=== PATIENT | female | born 2000 | race African-American/Black ===

== ENCOUNTER 2023-01-09 07:05 | Emergency (ER) | payer OTHER ==
[~2023-01-09] VITALS: Ht 162.6 cm; Wt 72.0 kg
[2023-01-09 08:46] VITALS: BP 116/69; TEMP 98.5; O2SAT 99
== END 2023-01-09 08:47 | disposition home or self-care (01) ==
LOC: M ED 07:05
DX: S69.91XA Unspecified injury of right wrist, hand and finger(s), initial encounter (principal); W01.0XXA Fall on same level from slipping, tripping and stumbling without subsequent striking against object, initial encounter; Y99.1 Military activity

== ENCOUNTER 2023-08-17 08:49 | Emergency (ER) | payer OTHER ==
[~2023-08-17] VITALS: Ht 162.6 cm; Wt 75.6 kg
[2023-08-17 10:02] LABS: HEMATOCRIT 40.1 % (36.0-47.0); HEMOGLOBIN 13.3 g/dl (12.0-15.5); MEAN CORPUSCULAR HEMOGLOBIN 29.7 pg (27.0-33.0); MEAN CORPUSCULAR HGB CONC 33.2 g/dl (32.0-36.5); MEAN CORPUSCULAR VOLUME 89.5 fl (80.0-96.0); PLATELET COUNT, AUTOMATED 185 10^3/uL (150-450); RED BLOOD COUNT 4.48 10^6/uL (4.00-5.40); WHITE BLOOD COUNT 5.9 10^3/uL (4.0-10.0)
[2023-08-17 10:07] LABS: INR 0.99; PROTHROMBIN TIME 12.8 SECONDS (12.5-14.5)
[2023-08-17 10:20] LABS: LIPASE 32 U/L (12-53)
[2023-08-17 10:22] LABS: ALBUMIN 3.6 G/DL (3.2-5.2); ALKALINE PHOSPHATASE 60 U/L (46-116); ALT/SGPT 16 U/L (7.0-40); AST/SGOT 15 U/L (<34); BILIRUBIN,DIRECT 0.1 MG/DL (<0.4); BILIRUBIN,TOTAL 0.4 MG/DL (0.3-1.2); BLOOD UREA NITROGEN 12 MG/DL (9-23); CALCIUM LEVEL 8.6 MG/DL (8.5-10.1); CARBON DIOXIDE LEVEL 29 MMOL/L (20-31); CHLORIDE LEVEL 103 MMOL/L (98-107); CREATININE FOR GFR 0.81 MG/DL (0.55-1.30); GLOMERULAR FILTRATION RATE > 60.0 (>60); GLUCOSE, FASTING 76 MG/DL (60-100); POTASSIUM SERUM 4.4 MMOL/L (3.5-5.1); SODIUM LEVEL 137 MMOL/L (136-145); TOTAL PROTEIN 6.9 G/DL (5.7-8.2)
[2023-08-17 10:28] LABS: HCG, SERUM QUALITATIVE NEGATIVE (NEGATIVE)
[2023-08-17 10:32] LABS: ATYPICAL LYMPH 8 % (0-5); BASOPHILS 1 % (0-1); EOSINOPHILS 2 % (0-3); LYMPHOCYTES 17 % (16-44); MONOCYTES 10 % (0-5); NEUTROPHILS 59 % (28-66)
[2023-08-17 10:34] LABS: PLATELET ESTIMATE NORMAL (NORMAL)
[2023-08-17] MEDS ORDERED: MIRA3350 PO (11:40)
[2023-08-17 12:31] VITALS: BP 111/57; TEMP 98.3; O2SAT 100
== END 2023-08-17 12:43 | disposition home or self-care (01) ==
LOC: M ED 08:49
DX: K62.5 Hemorrhage of anus and rectum (principal); K59.00 Constipation, unspecified; F10.10 Alcohol abuse, uncomplicated; Z79.1 Long term (current) use of non-steroidal anti-inflammatories (NSAID)

== ENCOUNTER 2023-11-05 13:58 | Emergency (ER) | payer OTHER ==
[~2023-11-05] VITALS: Ht 162.6 cm; Wt 74.0 kg
[~2023-11-05 13:58] MED LIST: MIRA3350 PO
[2023-11-05 19:39] LABS: BASO % 0.4 % (0.0-1.0); EOS # 1.2 10^3/uL (0.0-0.5); HEMATOCRIT 33.5 % (36.0-47.0); HEMOGLOBIN 10.9 g/dl (12.0-15.5); LYMPH # 2.2 10^3/uL (1.5-5.0); LYMPH % 24.3 % (24.0-44.0); MEAN CORPUSCULAR HEMOGLOBIN 28.2 pg (27.0-33.0); MEAN CORPUSCULAR HGB CONC 32.5 g/dl (32.0-36.5); MEAN CORPUSCULAR VOLUME 86.6 fl (80.0-96.0); MONO # 0.8 10^3/uL (0.0-0.8); MONO % 9.4 % (2.0-8.0); NEUTROPHILS # 4.7 10^3/uL (1.5-8.5); NEUTROPHILS % 52.5 % (36.0-66.0); PLATELET COUNT, AUTOMATED 344 10^3/uL (150-450); RED BLOOD COUNT 3.87 10^6/uL (4.00-5.40); WHITE BLOOD COUNT 8.9 10^3/uL (4.0-10.0)
[2023-11-05 19:40] LABS: INR 1.07; PROTHROMBIN TIME 13.6 SECONDS (12.5-14.5)
[2023-11-05 19:42] LABS: LIPASE 30 U/L (12-53)
[2023-11-05 19:44] LABS: ALBUMIN 3.2 G/DL (3.2-5.2); ALKALINE PHOSPHATASE 62 U/L (46-116); ALT/SGPT 12 U/L (7.0-40); AST/SGOT 11 U/L (<34); BILIRUBIN,DIRECT < 0.1 MG/DL (<0.4); BILIRUBIN,TOTAL 0.2 MG/DL (0.3-1.2); BLOOD UREA NITROGEN 8 MG/DL (9-23); CALCIUM LEVEL 9.4 MG/DL (8.5-10.1); CARBON DIOXIDE LEVEL 28 MMOL/L (20-31); CHLORIDE LEVEL 105 MMOL/L (98-107); CREATININE FOR GFR 0.89 MG/DL (0.55-1.30); GLOMERULAR FILTRATION RATE > 60.0 (>60); GLUCOSE, FASTING 88 MG/DL (60-100); SODIUM LEVEL 138 MMOL/L (136-145); TOTAL PROTEIN 6.4 G/DL (5.7-8.2)
[2023-11-05] MEDS ORDERED: PRED20TA PO (20:25)
[2023-11-05 20:30] VITALS: O2SAT 99
[2023-11-05 20:53] VITALS: BP 120/76; TEMP 98.8
== END 2023-11-05 20:55 | disposition home or self-care (01) ==
LOC: M ED 13:58
DX: K51.911 Ulcerative colitis, unspecified with rectal bleeding (principal); F10.10 Alcohol abuse, uncomplicated; Z79.899 Other long term (current) drug therapy; Z79.52 Long term (current) use of systemic steroids

== ENCOUNTER 2024-02-14 10:51 | Outpatient (CLI) | payer OTHER ==
[~2024-02-14] VITALS: Ht 162.6 cm; Wt 60.0 kg
[~2024-02-14 10:51] MED LIST changes: +ALBUTEROL SULFATE 2.5MG/0.5ML INH NEB SOLN INH PRN; +EPINEPHrine INJ 1 MG/ML 1ML AMP IM PRN; +NS 1,000 ML IV SCH; +PRED20TA PO; +diphenhydrAMINE 50MG/ML VIAL IV PRN; +methylPREDNISolone 125MG 2ML VIAL IV PRN
[2024-02-14 11:00] VITALS: BP 111/59; O2SAT 100
[2024-02-14 11:04] VITALS: BP 111/59; O2SAT 100
[2024-02-14] MEDS: VEDOLIZUMAB 300 MG in NS 250 ML IV ONE (11:48)
[2024-02-14 12:30] VITALS: BP 119/65; O2SAT 100
== END 2024-02-14 13:00 ==
LOC: M INFU 10:51
PROVIDERS: ATTEND Internal Medicine Gastroenterology
DX: K51.90 Ulcerative colitis, unspecified, without complications (principal)
CPT/HCPCS: 96365; J3380

== ENCOUNTER 2024-02-28 11:00 | Outpatient (CLI) | payer OTHER ==
[~2024-02-28] VITALS: Ht 162.6 cm; Wt 61.4 kg
[2024-02-28 11:12] VITALS: BP 109/75; TEMP 98.4; O2SAT 100
[2024-02-28] MEDS: VEDOLIZUMAB 300 MG in NS 250 ML IV ONE (11:37)
[2024-02-28 12:20] VITALS: BP 117/69; O2SAT 97
== END 2024-02-28 12:20 ==
LOC: M INFU 11:00
PROVIDERS: ATTEND Internal Medicine Gastroenterology
DX: K51.90 Ulcerative colitis, unspecified, without complications (principal)
CPT/HCPCS: 96365; J3380

== ENCOUNTER 2024-03-27 10:44 | Outpatient (CLI) | payer OTHER ==
[~2024-03-27] VITALS: Ht 162.6 cm; Wt 63.6 kg
[2024-03-27 10:45] VITALS: BP 110/63; O2SAT 99
[2024-03-27] MEDS: VEDOLIZUMAB 300 MG in NS 250 ML IV ONE (12:15)
[2024-03-27 12:49] VITALS: BP 123/62; O2SAT 100
== END 2024-03-27 12:50 ==
LOC: M INFU 10:44
PROVIDERS: ATTEND Internal Medicine Gastroenterology
DX: K51.90 Ulcerative colitis, unspecified, without complications (principal)
CPT/HCPCS: 96365; J3380

== ENCOUNTER → 2024-05-08 | Outpatient (CLI) | payer OTHER ==
[~2024-05-08] VITALS: Ht 162.6 cm; Wt 63.6 kg
[~2024-05-08] MED LIST changes: -NS 1,000 ML IV SCH
[2024-05-08 14:55] VITALS: BP 127/61; O2SAT 97
[2024-05-08] MEDS: IRON SUCROSE 300 MG in NS 250 ML IV ONE (16:00)
[2024-05-08 17:23] VITALS: BP 114/70; O2SAT 98
== END ==
LOC: M INFU 14:46
PROVIDERS: ATTEND Internal Medicine Hematology
DX: D50.9 Iron deficiency anemia, unspecified (principal)
CPT/HCPCS: 96365; 96366; J1756

== ENCOUNTER 2024-05-15 14:45 | Outpatient (CLI) | payer OTHER ==
[2024-05-15 14:45] VITALS: BP 125/62; O2SAT 98
[2024-05-15] MEDS: IRON SUCROSE 300 MG in NS 250 ML OVER 90 MIN. IV ONE (15:02)
[2024-05-15 16:38] VITALS: BP 118/69; O2SAT 99
== END 2024-05-15 16:45 ==
LOC: M INFU 14:45
PROVIDERS: ATTEND Internal Medicine Hematology
DX: D50.9 Iron deficiency anemia, unspecified (principal)
CPT/HCPCS: 96365; 96366; J1756

== ENCOUNTER 2024-05-22 10:56 | Outpatient (CLI) | payer OTHER ==
[2024-05-22 10:00] VITALS: BP 118/68; O2SAT 98
[~2024-05-22 10:56] MED LIST changes: +NS (Normal Saline) 0.9% 1,000 ML IV SCH
[2024-05-22] MEDS: VEDOLIZUMAB 300 MG in NS 250 ML IV ONE (11:34)
[2024-05-22 12:15] VITALS: BP 113/63; O2SAT 97
== END 2024-05-22 12:15 ==
LOC: M INFU 10:56
PROVIDERS: ATTEND Internal Medicine Gastroenterology
DX: K51.90 Ulcerative colitis, unspecified, without complications (principal)
CPT/HCPCS: 96365; J3380

== ENCOUNTER 2024-05-23 13:55 | Outpatient (CLI) | payer OTHER ==
[~2024-05-23] VITALS: Ht 162.6 cm; Wt 63.6 kg
[~2024-05-23 13:55] MED LIST changes: -NS (Normal Saline) 0.9% 1,000 ML IV SCH
[2024-05-23 14:00] VITALS: BP 106/57; O2SAT 98
[2024-05-23] MEDS: IRON SUCROSE 300 MG in NS 250 ML IV ONE (14:11)
[2024-05-23 15:47] VITALS: BP 96/55; O2SAT 100
== END 2024-05-23 15:50 ==
LOC: M INFU 13:55
PROVIDERS: ATTEND Internal Medicine Hematology
DX: D50.9 Iron deficiency anemia, unspecified (principal)
CPT/HCPCS: 96365; 96366; J1756

== ENCOUNTER → 2024-06-12 | Outpatient (CLI) | payer OTHER ==
[~2024-06-12] MED LIST changes: -ALBUTEROL SULFATE 2.5MG/0.5ML INH NEB SOLN INH PRN; -EPINEPHrine INJ 1 MG/ML 1ML AMP IM PRN; -diphenhydrAMINE 50MG/ML VIAL IV PRN; -methylPREDNISolone 125MG 2ML VIAL IV PRN
[2024-06-12 11:52] LABS: C REACTIVE PROTEIN QUANTITATIV < 0.50 MG/DL (<1.0)
[2024-06-12 11:53] LABS: ALBUMIN 3.7 G/DL (3.2-5.2); ALKALINE PHOSPHATASE 55 U/L (35-104); ALT/SGPT 11 U/L (7.0-40); AST/SGOT 11 U/L (<34); BILIRUBIN,TOTAL 0.5 MG/DL (0.3-1.2); BLOOD UREA NITROGEN 13 MG/DL (9-23); CALCIUM LEVEL 9.2 MG/DL (8.5-10.1); CARBON DIOXIDE LEVEL 28 MMOL/L (20-31); CHLORIDE LEVEL 105 MMOL/L (98-107); CHOLESTEROL LEVEL 176 MG/DL (<200); CREATININE FOR GFR 0.74 MG/DL (0.55-1.30); GLOMERULAR FILTRATION RATE > 60.0 (>60); GLUCOSE, FASTING 80 MG/DL (60-100); HDL CHOLESTEROL 73.2 MG/DL (>40); LDL CHOLESTEROL 86.8 MG/DL (<100); MAGNESIUM LEVEL 1.8 MG/DL (1.8-2.4); NON-HDL-C 102.8 MG/DL; POTASSIUM SERUM 4.4 MMOL/L (3.5-5.1); SODIUM LEVEL 141 MMOL/L (136-145); TOTAL PROTEIN 7.1 G/DL (5.7-8.2); TRIGLYCERIDES LEVEL 80 MG/DL (<150)
[2024-06-12 11:58] LABS: BASO % 0.3 % (0.0-1.0); EOS # 0.1 10^3/uL (0.0-0.5); EOS % 2.2 % (0.0-3.0); HEMATOCRIT 38.3 % (36.0-47.0); HEMOGLOBIN 12.5 g/dl (12.0-15.5); LYMPH # 1.7 10^3/uL (1.5-5.0); LYMPH % 27.3 % (24.0-44.0); MEAN CORPUSCULAR HEMOGLOBIN 26.4 pg (27.0-33.0); MEAN CORPUSCULAR HGB CONC 32.6 g/dl (32.0-36.5); MEAN CORPUSCULAR VOLUME 80.8 fl (80.0-96.0); MONO # 0.3 10^3/uL (0.0-0.8); MONO % 4.8 % (2.0-8.0); NEUTROPHILS # 4.1 10^3/uL (1.5-8.5); NEUTROPHILS % 65.2 % (36.0-66.0); PLATELET COUNT, AUTOMATED 182 10^3/uL (150-450); RED BLOOD COUNT 4.74 10^6/uL (4.00-5.40); WHITE BLOOD COUNT 6.3 10^3/uL (4.0-10.0)
[2024-06-12 12:02] LABS: ERYTHROCYTE SEDIMENTATION RATE 4 mm/hr (0-20)
[2024-06-13 14:37] LABS: NT PRO BNP SO 48 pg/mL (<125)
== END ==
LOC: M LAB 10:18
PROVIDERS: ATTEND Internal Medicine Cardiovascular Disease
DX: R06.09 Other forms of dyspnea (principal)

== ENCOUNTER 2024-07-17 11:25 | Outpatient (CLI) | payer OTHER ==
[~2024-07-17] VITALS: Ht 162.6 cm; Wt 63.6 kg
[~2024-07-17 11:25] MED LIST changes: +ALBUTEROL SULFATE 2.5MG/0.5ML INH NEB SOLN INH PRN; +EPINEPHrine INJ 1 MG/ML 1ML AMP IM PRN; +diphenhydrAMINE 50MG/ML VIAL IV PRN; +methylPREDNISolone 125MG 2ML VIAL IV PRN
[2024-07-17 11:30] VITALS: BP 109/66; O2SAT 96
[2024-07-17] MEDS: VEDOLIZUMAB 300 MG in NS 250 ML IV ONE (12:09)
[2024-07-17 12:40] VITALS: BP 119/74; O2SAT 96
== END 2024-07-17 12:45 ==
LOC: M INFU 11:25
PROVIDERS: ATTEND Internal Medicine Gastroenterology
DX: K51.90 Ulcerative colitis, unspecified, without complications (principal)
CPT/HCPCS: 96365; J3380